=== PATIENT | male | born 1940 | race Hispanic/Latino ===

== ENCOUNTER 2017-08-25 12:55 | Inpatient (IN) | payer OTHER ==
[2017-08-25 14:13] LABS: Urine Blood TRACE (NEG); Urine Glucose TRACE (NEG); Urine Protein 2+ (NEG); Urine Specific Gravity 1.015 (1.005-1.030); Urine pH 5.5 (5.0-7.0)
[2017-08-25 14:27] LABS: Absolute Lymphocytes (CBC) 1.1 K/uL (0.7-4.9); Absolute Monocytes 0.8 K/uL (0.1-1.3); Absolute Neutrophil 6.4 K/uL (1.8-8.0); Basophils % 0.7 % (0-1.3); Eosinophils % 3.6 % (0-4.4); Lymphocytes % 12.3 % (15.3-44.8); MCH 30.3 pg (27.0-35.0); MCV 91.8 fL (80-100); MPV 10.2 fL (7.6-11.3); Monocytes % 9.3 % (3.3-12.3); RBC Red Blood Cell Count 4.14 M/uL (4.33-5.43)
[2017-08-25 14:38] LABS: Potassium 4.6 mEq/L (3.6-5.0)
--- NOTE | 2017-08-25 15:15 | ER ---
Nurse's Notes [facility] Name: Miguel Corbin Age: 77 yrs Sex: Male : 1940 Arrival Date: 08/25/2017 Time: 12:58 Bed 3 Private MD: Diagnosis: Altered mental status, unspecified;Low back pain;Compression fracture Presentation: 08/25 14:01 Presenting complaint: EMS states: states patient's daughter stated patient was not ae1 "acting right" Patient states he came to hospital because of his back pain. Transition of care: patient was not received from another setting of care. Onset of symptoms is unknown. Care prior to arrival: Glucose check: 238 v/s WNL. 14:01 Acuity: CLAY 3 ae1 14:01 Method Of Arrival: EMS: [facility] ae1 Triage Assessment: 17:09 General: Appears in no apparent distress. uncomfortable, slender. ae1 Historical: - Allergies: 17:12 No Known Allergies; ae1 - Home Meds: 17:12 gabapentin 300 mg Oral cap 1 cap twice a day [Active]; Humalog Pen Sub-Q [Active]; ae1 Toujeo SoloStar 300 unit/mL (1.5 mL) subcutaneous inpn 25 unit twice a day [Active]; tramadol 50 mg Oral tab 1 tab twice a day [Active]; - PMHx: 17:12 Diabetes - IDDM; ae1 - Immunization history:: Adult Immunizations Flu vaccine is not up to date. - Social history:: Smoking status: Patient/guardian denies using tobacco. Screenin:04 Abuse screen: Denies threats or abuse. Nutritional screening: No deficits noted. ae1 Tuberculosis screening: No symptoms or risk factors identified. Fall Risk Fall in past 12 months (25 points). No secondary diagnosis (0 pts). IV access (20 points). Ambulatory Aid- Crutches/Cane/Walker (15 pts). Gait- Weak (10 pts.). Mental Status- Overestimates/Forgets Limitations (15 pts.). Assessment: 13:00 General: Appears in no apparent distress. uncomfortable, Behavior is cooperative, ae1 anxious. Pain: Complains of pain in thoracic area, lumbar area, left mid back and right mid back. Neuro: Level of Consciousness is awake, alert, obeys commands, Oriented to person, place, situation. Cardiovascular: Heart tones S1 S2 present Patient's skin is warm and dry. Respiratory: Airway is patent Respiratory effort is even, unlabored, Respiratory pattern is regular, symmetrical, Breath sounds are clear bilaterally. GI: Abdomen is round Bowel sounds present X 4 quads. Abd is soft and non tender X 4 quads. : Urine is clear, patient urinated 960 mls in urinal. EENT: No signs and/or symptoms were reported regarding the EENT system. Derm: Skin is normal. Musculoskeletal: Reports pain in lumbar area, left mid back and right mid back. 14:30 Reassessment: No changes from previously documented assessment. Patient and/or family ae1 updated on plan of care and expected duration. Pain level reassessed. 15:00 Reassessment: Patient removed monitoring equipment and does not want to put BP cuff ae1 back on. Provided patient teaching on monitoring equipment. 17:15 Reassessment: No changes from previously documented assessment. Patient and/or family ae1 updated on plan of care and expected duration. Pain level reassessed. Patient states feeling better. Vital Signs: 13:35 BP 158 / 96; Pulse 85; Resp 20; Pulse Ox 97% on R/A; ae1 14:01 Temp 98.(A); ae1 14:04 BP 156 / 84; Pulse 92; Resp 15 S; Pulse Ox 98% on R/A; ae1 15:07 BP 140 / 89; Pulse 83; Resp 19; Pulse Ox 96% on R/A; ae1 17:20 BP 143 / 82; Pulse 80; Resp 18; Pulse Ox 97% on R/A; ae1 ED Course: 12:58 Patient arrived in ED. ae1 13:07 Xiang Doan MD is Attending Physician. kdr 13:34 Uche Mckeon RN is Primary Nurse. ae1 14:03 Triage completed. ae1 14:06 Arm band placed on left wrist. ae1 14:06 Bed in low position. Call light in reach. Side rails up X2. Adult w/ patient. Pulse ox ae1 on. NIBP on. Warm blanket given. 15:13 Miguel Bermudez MD is Hospitalizing Provider. kdr 17:14 No provider procedures requiring assistance completed. Maintain EMS IV. Dressing ae1 intact. Good blood return noted. Site clean \\T\\ dry. Gauge \\T\\ site: 18 Gauge left hand. 17:22 Patient admitted, IV remains in place. ae1 Administered Medications: No medications were administered Point of Care Testing: Blood Glucose: 13:35 Blood Glucose: 212 mg/dL; ae1 Ranges: Outcome: 15:14 Decision to Hospitalize by Provider. kdr 17:22 Condition: stable ae1 17:22 Instructed on the need for admit, Demonstrated understanding of instructions. 17:37 Admitted to Tele accompanied by tech, family with patient, via stretcher, with chart. ae1 17:38 Admitted to Tele accompanied by tech, family with patient, via stretcher, room 407, ae1 with chart, Report called to Saadia. 17:38 Patient left the ED. ae1 Signatures: Xiang Doan MD MD kdr Uche Mckeon RN RN ae1
--- NOTE | 2017-08-25 15:15 | EDPHYS ---
Physician Documentation [facility] Name: Miguel Corbin Age: 77 yrs Sex: Male : 1940 Arrival Date: 08/25/2017 Time: 12:58 Bed 3 Private MD: ED Physician Xiang Doan HPI: 08/25 14:07 This 77 yrs old Male presents to ER via EMS with complaints of Back Pain. kdr 14:07 The patient presents with pain that is chronic. The symptoms are located in the low kdr back. Onset: The symptoms/episode began/occurred suddenly. 08/26 07:42 The pain does not radiate. Associated signs and symptoms: The patient has no apparent kdr associated signs or symptoms. The problem was sustained during a fall, The patient had fallen a few days ago and was seen here and diagnosed with a compression fracture, He continues to have pain and the daughter has related to Dr. Bermudez that she is unable to continue care.. Modifying factors: The patient symptoms are alleviated by nothing, the patient symptoms are aggravated by any movement. Severity of symptoms: At their worst the symptoms were mild, moderate, just prior to arrival, in the emergency department the symptoms are unchanged. The patient has experienced similar episodes in the past, today's symptoms are similar. The patient has been recently seen at the [facility] Emergency Department, last week. Historical: - Allergies: 08/25 17:12 No Known Allergies; ae1 - Home Meds: 17:12 gabapentin 300 mg Oral cap 1 cap twice a day [Active]; Humalog Pen Sub-Q [Active]; ae1 Toujeo SoloStar 300 unit/mL (1.5 mL) subcutaneous inpn 25 unit twice a day [Active]; tramadol 50 mg Oral tab 1 tab twice a day [Active]; - PMHx: 17:12 Diabetes - IDDM; ae1 - Immunization history:: Adult Immunizations Flu vaccine is not up to date. - Social history:: Smoking status: Patient/guardian denies using tobacco. ROS: 08/26 07:42 Constitutional: Negative for fever, chills, and weight loss, Eyes: Negative for injury, kdr pain, redness, and discharge, Neck: Negative for injury, pain, and swelling, Cardiovascular: Negative for chest pain, palpitations, and edema, Respiratory: Negative for shortness of breath, cough, wheezing, and pleuritic chest pain, Abdomen/GI: Negative for abdominal pain, nausea, vomiting, diarrhea, and constipation, : Negative for injury, bleeding, discharge, and swelling, MS/Extremity: Negative for injury and deformity, Skin: Negative for injury, rash, and discoloration, Neuro: Negative for headache, weakness, numbness, tingling, and seizure activity. Back: Positive for Exam: 07:42 Constitutional: This is a well developed, well nourished patient who is awake, alert, kdr and in no acute distress. Head/Face: Normocephalic, atraumatic. Neck: Trachea midline, no thyromegaly or masses palpated, and no cervical lymphadenopathy. Supple, full range of motion without nuchal rigidity, or vertebral point tenderness. No Meningismus. Chest/axilla: Normal chest wall appearance and motion. Nontender with no deformity. No lesions are appreciated. Cardiovascular: Regular rate and rhythm with a normal S1 and S2. No gallops, murmurs, or rubs. Normal PMI, no JVD. No pulse deficits. Respiratory: Lungs have equal breath sounds bilaterally, clear to auscultation and percussion. No rales, rhonchi or wheezes noted. No increased work of breathing, no retractions or nasal flaring. 07:42 Back: pain, that is mild, that is moderate, of the lumbar area, ROM is painful, with all movement, normal spinal alignment noted, CVA tenderness, is absent, vertebral tenderness, is appreciated at T12, L1, L2 and L3. Vital Signs: 08/25 13:35 BP 158 / 96; Pulse 85; Resp 20; Pulse Ox 97% on R/A; ae1 14:01 Temp 98.(A); ae1 14:04 BP 156 / 84; Pulse 92; Resp 15 S; Pulse Ox 98% on R/A; ae1 15:07 BP 140 / 89; Pulse 83; Resp 19; Pulse Ox 96% on R/A; ae1 17:20 BP 143 / 82; Pulse 80; Resp 18; Pulse Ox 97% on R/A; ae1 MDM: 13:07 Patient medically screened. kdr 08/26 07:42 Data reviewed: vital signs, nurses notes, lab test result(s), radiologic studies. kdr Counseling: I had a detailed discussion with the patient and/or guardian regarding: the historical points, exam findings, and any diagnostic results supporting the discharge/admit diagnosis, lab results, radiology results, the need for further work-up and treatment in the hospital. Physician consultation: Miguel Bermudez MD. 08/25 13:12 Order name: CBC with Diff [facility] 08/25 13:12 Order name: Chem 7 kdr 08/25 14:02 Order name: Urine Dipstick--Ancillary (enter results) ms 08/25 14:13 Order name: Urine Dipstick-Ancillary; Complete Time: 15:04 EDWI 08/25 14:28 Order name: CBC with Automated Diff; Complete Time: 15:04 EDWI 08/25 14:38 Order name: Basic Metabolic Panel; Complete Time: 15:04 EDWI 08/25 13:12 Order name: Urine Dipstick-Ancillary (obtain specimen); Complete Time: 14:01 kdr Administered Medications: No medications were administered Point of Care Testing: Blood Glucose: 08/25 13:35 Blood Glucose: 212 mg/dL; ae1 Ranges: Critical Glucose Levels:Adult <50 mg/dl or >400 mg/dl <40 mg/dl or >180 mg/dl Disposition: 08/25/17 15:14 Hospitalization ordered by Miguel Bermudez for Inpatient Admission. Preliminary diagnosis are Altered mental status, unspecified, Low back pain, Compression fracture. - Bed requested for Telemetry/MedSurg (Inpatient). - Status is Inpatient Admission. ae1 - Condition is Fair. - Problem is new. - Symptoms are unchanged. UTI on Admission? No Signatures: Dispatcher [employer] [facility] Xiang Doan MD MD kdr Solis, Maria ms Uche Mckeon RN RN ae1 Anabelle Cisneros RN RN df
[2017-08-25] MEDS ORDERED: ONDANSETRON 4 MG/2 ML VIAL IV PRN (15:17)
[2017-08-25] MEDS ORDERED: D50W 25 GM/50 ML SYRINGE IV PRN (15:17)
[2017-08-25] MEDS ORDERED: GLUCAGON 1 MG/VIAL IM PRN (15:17)
[2017-08-25] MEDS ORDERED: ACETAMINOPHEN 500 MG TAB PO PRN (15:17)
[2017-08-25] MEDS: INSULIN -REGULAR HUMAN 50 UNIT/0.5 ML ML SQ SCH ×2 (18:17→21:00)
[2017-08-25 19:36] VITALS: BMI 20.9
[2017-08-26 06:12] LABS: Absolute Monocytes 0.7 K/uL (0.1-1.3); Absolute Neutrophil 5.9 K/uL (1.8-8.0); Basophils % 0.7 % (0-1.3); Eosinophils % 4.9 % (0-4.4); Hematocrit 37.8 % (39.6-49.0); Lymphocytes % 12.9 % (15.3-44.8); MCH 30.9 pg (27.0-35.0); MCV 91.3 fL (80-100); MPV 9.9 fL (7.6-11.3); Monocytes % 8.4 % (3.3-12.3); RBC Red Blood Cell Count 4.14 M/uL (4.33-5.43)
[2017-08-26 06:23] LABS: Potassium 5.8 mEq/L (3.6-5.0)
[2017-08-26] MEDS ORDERED: SOD POLYSTYREN SUL 15 GM/60 ML UCUP PO ONE (06:30)
--- NOTE | 2017-08-26 07:28 | EKG ---
Test Date: 2017-08-25 Test Time: 13:08:42 Kiln Charger: TARA MEASUREMENT RESULTS: Intervals: Rate: 90 NE: 174 QRSD: 102 QT: 374 QTc: 457 [place]: P: 15 NE: 174 QRS: -19 T: -15 INTERPRETIVE STATEMENTS: Normal sinus rhythm Septal infarct, age undetermined Abnormal ECG Compared to ECG 03/20/2017 18:23:11 Sinus tachycardia no longer present Myocardial infarct finding still present Electronically Signed On 08-26-17 07:27:50 CDT by Son Ramires
[2017-08-26] MEDS: INSULIN -REGULAR HUMAN 50 UNIT/0.5 ML ML SQ SCH ×4 (07:30→21:28)
[2017-08-26] MEDS: AMLODIPINE 10 MG TAB PO SCH (09:00)
--- NOTE | 2017-08-26 18:06 | HP ---
Date of Admission: 08/25/2017 Chief Complaint: Altered mentation. History Of Present Illness: A 77-year-old with multiple medical problems, was seen in the emergency room over the last week and from a fall after which he was diagnosed to have compression fracture of the spine and fracture of the transverse process. The patient has been given pain medications. The patient according to the daughter, who is in charge of his supervision and health care at home, found that he was getting increasingly lethargic and with a possibility of diabetic ketoacidosis. He was brought to the emergency room, where evaluation showed no evidence of diabetic ketoacidosis. However , he was found to have the confusion and lethargic. The patient is admitted. In addition, the patie nt's family is unable to take care of him at home and if possible, the patient needs to be put in a n ursing home temporarily and possibly look for department solution for his placement. Past Medical History: Is extensive includes history of type 2 diabetes, peripheral vascular disease, multiple amputations of the toes. The patient had nephrectomy done in the past. Other medical prob lems include history of chronic renal failure and hypertension. Allergies: NONE. Home Medicines: Neurontin, Humalog, Toujeo, tramadol, Tylenol #3. Family History: Noncontributory. Personal History: Nonsmoker. Review of Systems: No chest pain, fever, chills, rigors. Physical Examination: General: Revealed a 77-year-old male, slightly confused HEENT: No evidence of head injury. Neck: Supple. JVD negative. Multiple teeth missing noted. Neck: No JVD. Chest: Few scattered wheezes. Heart: Regular. Abdomen: Soft, nontender. Extremities: Amputation of the toes noted. Laboratory: White count normal. Chem profile, elevation of BUN and creatinine noted. Today the pot assium has gone up to 5.8, which was normal yesterday. Assessment: 1.Altered mentation. 2.Hyperkalemia. 3.Type 2 diabetes. 4.Compression fracture of the spine and transfer process from fall. 5.Single kidney state. 6.Hypertension. 7.Peripheral vascular disease. Plan: The patient received potassium. Social service consult has been obtained for place ment. The patient meanwhile will be continued on the same treatment. His urinary bladder will be sc anned to see if urinary retention is the reason for his hyperkalemia. His kidney function as a matte r of fact looks improved from yesterday. BEBA/FAITH Voice ID: [id number]
--- NOTE | 2017-08-26 21:16 | PN ---
The patient is refusing any fluid. He does not want to take his medication. He does not want any bl ood draws or IVs. I spoke to the family regarding his care. They would like to come and convince th e patient to change his mind. Meanwhile, the patient will be continued on suggestions about his medi anita care and improvement of his medical status. BEBA/FAITH Voice ID: [id number] Report ID: [id number]
[2017-08-27 07:34] LABS: Potassium 4.5 mEq/L (3.6-5.0)
[2017-08-27] MEDS: AMLODIPINE 10 MG TAB PO SCH (08:13)
[2017-08-27] MEDS: INSULIN -REGULAR HUMAN 50 UNIT/0.5 ML ML SQ SCH ×4 (08:14→22:06)
--- NOTE | 2017-08-27 21:16 | PN ---
The patient took Kayexalate last night. His potassium is back to normal. He is placed on a low-pota ssium diet. However, his kidney function has worsened probably due to lack of oral intake of fluids. He will be encouraged to drink more fluids and eat better. If this cannot be done, he may need IV fluid administration. The patient also is put on physical therapy to see whether he would cooperate. He also is in the process of being considered for correction placement. BEBA/FAITH Voice ID: [id number] Report ID: [id number]
[2017-08-27] MEDS: TRAMADOL HCL 50 MG TAB PO PRN (23:25)
[2017-08-28 06:33] LABS: Potassium 4.2 mEq/L (3.6-5.0)
[2017-08-28] MEDS: INSULIN -REGULAR HUMAN 50 UNIT/0.5 ML ML SQ SCH ×4 (09:04→22:03)
[2017-08-28] MEDS: AMLODIPINE 10 MG TAB PO SCH (09:05)
--- NOTE | 2017-08-28 20:09 | PN ---
The patient is eating somewhat. His kidney function, potassium have improved. Social Service and Ph ysical Therapy have been consulted for jail placement. BEBA/FAITH Voice ID: [id number] Report ID: [id number]
[2017-08-28] MEDS: TRAMADOL HCL 50 MG TAB PO PRN (22:10)
[2017-08-29] MEDS: INSULIN -REGULAR HUMAN 50 UNIT/0.5 ML ML SQ SCH ×4 (08:09→21:05)
[2017-08-29] MEDS: AMLODIPINE 10 MG TAB PO SCH (08:10)
--- NOTE | 2017-08-29 11:04 | PN ---
The patient looks stable and he is eating fairly well. The patient is in the process of physical the rapy and possible transfer to residential when arranged by Social Service. BEBA/FAITH Voice ID: [id number] Report ID: [id number]
[2017-08-29 14:42] VITALS: O2SAT 98
[2017-08-30] MEDS: AMLODIPINE 10 MG TAB PO SCH (09:21)
[2017-08-30] MEDS: INSULIN -REGULAR HUMAN 50 UNIT/0.5 ML ML SQ SCH ×3 (09:21→16:30)
[2017-08-30 16:17] VITALS: BP 131/66; TEMP 97.8
--- NOTE | 2017-09-27 00:43 | DS ---
Date of Discharge: 08/30/2017 Final Diagnoses: 1.Altered mentation. 2.Poor oral intake. 3.Hyperkalemia. 4.Type 2 diabetes requiring insulin. 5.Hypertension. 6.Peripheral vascular disease. 7.Compression fractures of the spine and transfer process from recent fall. Hospital Course: This patient was admitted due to altered mentation. His potassium was elevated to 5.8. The patient had multiple medical issues. The patient also had single kidney. The patient afte r admission to the hospital, however, refused any medications IVs and he did not want any treatment f or his illnesses. Multiple consultations were done with the family. It was felt that the patient wa s a mcc candidate as family could not take care of him at home. The patient had discussions with the family as well as social worker clinical. The patient spontaneously started eating more and he refu sed mcc transfer or admission. At this point, the patient was able to eat adequately. He w as released to the care of the family for further management. He was advised to follow up in the off ice. Laboratory: Please refer to the chart. BEBA/SHEYLAL Voice ID: [id number] Report ID: [id number]
== END 2017-08-30 18:30 | disposition home or self-care (01) | DRG 641 ==
LOC: ER 12:55 → ERHOLD 15:15 → 4TH 17:16
PROVIDERS: ADMIT Internal Medicine; ATTEND Internal Medicine
DX: E87.5 Hyperkalemia (principal); I73.9 Peripheral vascular disease, unspecified; E11.22 Type 2 diabetes mellitus with diabetic chronic kidney disease; I12.9 Hypertensive chronic kidney disease with stage 1 through stage 4 chronic kidney disease, or unspecified chronic kidney disease; N18.9 Chronic kidney disease, unspecified
CPT/HCPCS: 36415; 70450; 72125; 72131; 72192; 80048; 81003; 82962; 85025; 93005; 96372; 97163; 99284; 99285